=== PATIENT | female | born 1970 | race African-American/Black ===

== ENCOUNTER → 2020-05-06 | Emergency (ER) | payer SELFPAY ==
[~2020-05-06] VITALS: Ht 149.9 cm; Wt 76.7 kg
[~2020-05-06] MED LIST: ALBUTEROL2.5 MG/3 M HHN; DEXAMETHASONE2 MG PO; PROMETHAZINE-C118 M1 ORAL; dexAMETHasone 10mg/ml Inj IV ONE
[2020-05-06 06:45] VITALS: BP 133/74
--- NOTE | 2020-05-06 06:45 | NUR ---
ED Nurse Note: Pt walked into ED from home c/o cough and right flank pain. Pt states she was diagnosed with bronchitis 1 week ago and finished course of ABX zithromax and albuterol without relief. Pt also had negative COVID test 1 week ago. Upon arrival pt is wheezing, denies SOB on RA sating 100%. Pt is AAOx4, ambulatory steady, breathing even and unlabored. Vital signs stable.
--- NOTE | 2020-05-06 07:02 | Emergency Room Report ---
History of Present Illness General Chief Complaint: Upper Respiratory Illness Source: Patient Present Illness HPI Patient is a 50-year-old female denies any significant past medical history who presents to the ER complaining of cough for about 10 days. Patient states that he was initially associated with yellowish phlegm which has since resolved. Patient complains of generalized body aches but denies any chest pain or shortness of breath. Patient also complains of mild generalized headache and bilateral lateral back tenderness which she attributes to the cough. She denies any blurry vision or focal weakness. She denies any rash or neck stiffness. Patient states that she went to an urgent care that prescribed her a Z-Jamie, albuterol inhaler and Tessalon Perles. She states that her chest x-ray at that time was normal and that her COVID-19 test was negative. She denies any smoking or recent travel. She denies any lower extremity pain or edema. She denies being on any hormone replacement therapy. 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 COVID-19 Screening: Negative COVID-19 COVID-19 Testing Source: Pt does not remember clinic name Patient History Reviewed Nursing Documentation: PMH: Agreed; PSxH: Agreed Nursing Documentation-PMH Past Medical History: No Stated History Review of Systems All Other Systems: negative except mentioned in HPI Physical Exam Vital Signs Date Time Temp Pulse Resp B/P (MAP) Pulse Ox O2 Delivery O2 Flow Rate FiO2 05/06/20 06:42 98.1 89 26 130/70 (90) 100 Room Air Sp02 EP Interpretation: reviewed, normal General Appearance: no apparent distress, alert, GCS 15, non-toxic Head: normocephalic, atraumatic Eyes: bilateral eye normal inspection, bilateral eye PERRL ENT: hearing grossly normal, normal pharynx, no angioedema, normal voice Neck: full range of motion, supple/symm/no masses Respiratory: no respiratory distress, no accessory muscle use, wheezing Cardiovascular #1: regular rate, rhythm Gastrointestinal: non tender, soft, no guarding, no rebound Rectal: deferred Genitourinary: no CVA tenderness Musculoskeletal: normal range of motion, no calf tenderness, no lower extremity edema Neurologic: operating room orderly III-XII nml as tested, oriented x3 Psychiatric: no suicidal/homicidal ideation Skin: no rash Lymphatic: no adenopathy Medical Decision Making Diagnostic Impression: Primary Impression: Hyperglycemia ER Course Patient's ER work-up demonstrates mild hyperglycemia. Patient advised to follow-up with her primary care physician for further evaluation. Patient's chest x-ray demonstrates no acute cardiopulmonary pathology. Patient's troponin negative. Patient's D-dimer negative. Patient given albuterol treatment as well as Decadron. On reevaluation her wheezing has improved. She states she feels improved. Patient has no elevated white blood cell count is afebrile and already took a Z-Jamie. I do not see a current indication for antibiotics. Patient is in no acute respiratory distress. Patient will be discharged home with albuterol inhaler, Decadron and cough suppressant. After discussing risks and benefits of further diagnostics, treatment plans, as well as indications for and risks of admission, the patient is agreeable to being discharged home. I have explained that their evaluation and treatment in the emergency department today is an important step towards them achieving better health but that their evaluation today is not intended to replace further evaluation and treatment by a physician in their local clinic. I have explained that while the current findings suggest no immediate life threatening emergency they will require further evaluation and treatment by a physician of their choice in their area. They understand that it will be necessary for them to review the final reports of their ED visit with their clinic physician. We have reviewed indications for return to the Emergency Department. I have explained that additional time may need to pass and/or additional testing as an outpatient may be necessary before a definitive diagnosis can be made. They tell me they are willing to follow up as instructed within the timeframe I recommend. They appear to understand what we discussed. Additionally they understand that if they are unable to be seen by an outpatient physician they are welcome, and in fact should, return to the Emergency Department for a repeat evaluation. The patient is stable at time of discharge. Laboratory Tests Test 05/06/20 07:00 White Blood Count 5.6 K/UL (4.8-10.8) Red Blood Count 4.39 M/UL (4.20-5.40) Hemoglobin 14.0 G/DL (12.0-16.0) Hematocrit 41.8 % (37.0-47.0) Mean Corpuscular Volume 95 FL (80-99) Mean Corpuscular Hemoglobin 31.9 PG (27.0-31.0) H Mean Corpuscular Hemoglobin Concent 33.5 G/DL (32.0-36.0) Red Cell Distribution Width 14.4 % (11.6-14.8) Platelet Count 275 K/UL (150-450) Mean Platelet Volume 7.4 FL (6.5-10.1) Neutrophils (%) (Auto) 80.3 % (45.0-75.0) H Lymphocytes (%) (Auto) 16.5 % (20.0-45.0) L Monocytes (%) (Auto) 1.8 % (1.0-10.0) Eosinophils (%) (Auto) 0.6 % (0.0-3.0) Basophils (%) (Auto) 0.8 % (0.0-2.0) Prothrombin Time 11.2 SEC (9.30-11.50) Prothrombin Time INR 1.0 (0.9-1.1) Activated Partial Thromboplast Time 25 SEC (23-33) D-Dimer 0.28 mg/L FEU (0.00-0.49) Urine Color Pale yellow Urine Appearance Clear Urine pH 6 (4.5-8.0) Urine Specific [place] 1.005 (1.005-1.035) Urine Protein Negative (NEGATIVE) Urine Glucose (UA) 4+ (NEGATIVE) H Urine Ketones Negative (NEGATIVE) Urine Blood Negative (NEGATIVE) Urine Nitrite Negative (NEGATIVE) Urine Bilirubin Negative (NEGATIVE) Urine Urobilinogen Normal MG/DL (0.0-1.0) Urine Leukocyte Esterase Negative (NEGATIVE) Sodium Level 138 MMOL/L (136-145) Potassium Level 4.3 MMOL/L (3.5-5.1) Chloride Level 103 MMOL/L (98-107) Carbon Dioxide Level 28 MMOL/L (21-32) Anion Gap 7 mmol/L (5-15) Blood Urea Nitrogen 19 mg/dL (7-18) H Creatinine 0.8 MG/DL (0.55-1.30) Estimated Glomerular Filtration Rate > 60 mL/min (>60) Glucose Level 322 MG/DL (74-106) H Lactic Acid Level 1.80 mmol/L (0.4-2.0) Calcium Level 9.0 MG/DL (8.5-10.1) Magnesium Level 2.1 MG/DL (1.8-2.4) Ferritin 32 NG/ML (8-388) Total Bilirubin 0.3 MG/DL (0.2-1.0) Aspartate Amino Transferase (AST) 27 U/L (15-37) Alanine Aminotransferase (ALT) 24 U/L (12-78) Alkaline Phosphatase 118 U/L (46-116) H Lactate Dehydrogenase 206 U/L (81-234) Troponin I 0.025 ng/mL (0.000-0.056) C-Reactive Protein, Quantitative Pending Pro-B-Type Natriuretic Peptide 310 pg/mL (0-125) H Total Protein 7.0 G/DL (6.4-8.2) Albumin 3.0 G/DL (3.4-5.0) L Globulin 4.0 g/dL Albumin/Globulin Ratio 0.8 (1.0-2.7) L Lipase 68 U/L (73-393) L Microbiology Date/Time Source Procedure Growth Status 05/06/20 07:00 Nasal Nares - Final Complete 05/06/20 07:00 Nasal Nares - Final Complete 05/06/20 07:00 Nasopharynx SARS-CoV-2 RdRp Gene Assay - Final Complete EKG Diagnostic Results Troponin ordered: Yes When was troponin ordered?: May 06, 2020 EKG Time: 07:00 EP Interpretation: Magalys Easton MD Rate: normal - 85 bpm Rhythm: NSR ST Segments: no acute changes Other Impression Left axis deviation, left bundle branch block ASA given to the pt in ED: No Rhythm Strip Diag. Results Rhythm Strip Time: 07:01 EP Interpretation: yes - Magalys Easton MD Rate: 86 bpm Rhythm: NSR, no PVC's, no ectopy Chest X-Ray Diagnostic Results Chest X-Ray Diagnostic Results : Chest X-Ray Ordered: Yes # of Views/Limited/Complete: 1 View Indication: Other - cough EP Interpretation: Yes Interpretation: no consolidation, no effusion, no pneumothorax, no acute cardiopulmonary disease Impression: No acute disease Electronically Signed by: Magalys Easton MD Last Vital Signs Date Time Temp Pulse Resp B/P (MAP) Pulse Ox O2 Delivery O2 Flow Rate FiO2 05/06/20 06:42 98.1 89 26 130/70 (90) 100 Room Air Disposition: HOME, SELF-CARE Condition: Stable Scripts Codeine/Promethazine Hcl* (PROMETHAZINE-CODEINE SYRUP*) 118 Ml Syrup 5 ML ORAL Q6H PRN for For Cough for 7 Days, ML 0 Refills Prov: Maaglys Easton M.D. 05/06/20 Dexamethasone* (DECADRON*) 2 Mg Tablet 10 MG PO DAILY for 3 Days, TAB Prov: Magalys Easton M.D. 05/06/20 Albuterol Sulfate* (ALBUTEROL SULFATE HHN*) 2.5 Mg/3 Ml Vial.neb 2.5 MG HHN Q4H PRN for Shortness of Breath, #25 VIAL Prov: Magalys Easton M.D. 05/06/20 Referrals: NOT CHOSEN IPA/,REFERRING (PCP) Additional Instructions: The patient was provided with discharge instructions, notified to follow-up with a primary care doctor and or specialist in the next 24-48 hours, and to return to the ED if they have worsening of their symptoms. Please note that this report is being documented using [employer] technology. This can lead to erroneous entry secondary to incorrect interpretation by the dictating instrument. Magalys Easton M.D. May 06, 2020 07:02
--- NOTE | 2020-05-06 07:15 | NUR ---
ED Nurse Note: blood, urine, cultures, lactic, COVID and FLU sent to lab
[2020-05-06 07:41] LABS: APPEARANCE,URINE CLEAR; BASOPHILS % (AUTO) 0.8 % (0.0-2.0); BILIRUBIN, URINE NEGATIVE (NEGATIVE); COLOR,URINE PALE YELLOW; EOSINOPHILS % (AUTO) 0.6 % (0.0-3.0); GLUCOSE, URINE (UA) 4+ (NEGATIVE); HEMATOCRIT 41.8 % (37.0-47.0); KETONES,URINE NEGATIVE (NEGATIVE); LEUKOCYTE ESTERASE ,URINE NEGATIVE (NEGATIVE); LYMPHOCYTES % (AUTO) 16.5 % (20.0-45.0); MEAN CORPUSCULAR VOLUME 95 FL (80-99); MONOCYTES % (AUTO) 1.8 % (1.0-10.0); NEUTROPHILS % (AUTO) 80.3 % (45.0-75.0); NITRITE,URINE NEGATIVE (NEGATIVE); PH,URINE 6 (4.5-8.0); PLATELET COUNT 275 K/UL (150-450); PROTEIN,URINE NEGATIVE (NEGATIVE); RED BLOOD COUNT 4.39 M/UL (4.20-5.40); RED CELL DISTRIBUTION WIDTH 14.4 % (11.6-14.8); UROBILINOGEN,URINE NORMAL MG/DL (0.0-1.0); WHITE BLOOD COUNT 5.6 K/UL (4.8-10.8)
--- NOTE | 2020-05-06 07:50 | NUR ---
ED Nurse Note: Called for cxr, informed no orthopaedic technologist available at this time. Charge, CAMILA Lovett and EDMD notified .
--- NOTE | 2020-05-06 07:56 | NUR ---
ED Nurse Note: RT called, COVID negative. Will come to do breathing treatment.
[2020-05-06 07:57] LABS: ANION GAP 7 mmol/L (5-15); BLOOD UREA NITROGEN 19 mg/dL (7-18); CARBON DIOXIDE 28 MMOL/L (21-32); CHLORIDE 103 MMOL/L (98-107); CREATININE 0.8 MG/DL (0.55-1.30); POTASSIUM 4.3 MMOL/L (3.5-5.1); SODIUM 138 MMOL/L (136-145)
--- NOTE | 2020-05-06 08:06 | NUR ---
ED Nurse Note: urinalysis technician at bedside
[2020-05-06 08:11] LABS: ALANINE AMINOTRANSFERASE 24 U/L (12-78); ALBUMIN/GLOBULIN RATIO 0.8 (1.0-2.7); ALKALINE PHOSPHATASE 118 U/L (46-116); ASPARTATE AMINO TRANSFERASE 27 U/L (15-37); BILIRUBIN,TOTAL 0.3 MG/DL (0.2-1.0); FERRITIN 32 NG/ML (8-388); LACTATE DEHYDROGENASE 206 U/L (81-234)
--- NOTE | 2020-05-06 08:25 | NUR ---
ED Nurse Note: RT at bedside giving breathing treatment
[2020-05-06] MEDS: Albuterol ud Inhalation HHN PRN ×2 (08:36→08:37)
--- NOTE | 2020-05-06 08:48 | Diagnostic Imaging Report ---
EXAM: XR Chest, 1 View CLINICAL HISTORY: COUGH TECHNIQUE: Frontal view of the chest. COMPARISON: No relevant prior studies available. FINDINGS: Lungs: Unremarkable. No consolidation. Pleural space: Unremarkable. No pneumothorax. Heart: Mild cardiomegaly. Calcified aorta. Mediastinum: Unremarkable. Bones/joints: Unremarkable. IMPRESSION: No focal infiltrate.
--- NOTE | 2020-05-07 10:47 | Cardiology Report ---
APPROVED REPORT EKG Measurement Heart [id number] <Conclusion> Normal sinus rhythm Biatrial enlargement Left axis deviation Left bundle branch block Abnormal ECG
== END | disposition home or self-care (01) ==
LOC: EMR 06:38
DX: R73.9 Hyperglycemia, unspecified (principal); R05 Cough; Z88.8 Allergy status to other drugs, medicaments and biological substances
CPT/HCPCS: 36415; 71045; 80053; 81003; 82728; 83605; 83615; 83690; 83735; 83880; 84484; 85025; 85379; 85610; 85730; 86140; 86710; 87040; 93005; 94640; 96374; 99284; U0002